=== PATIENT | male | born 1960 | race Caucasian/White ===

== ENCOUNTER 2019-12-13 11:11 | Outpatient (CLI) | payer BC, OTHER, SELFPAY ==
[2019-12-13 11:32] LABS: Basophils Percent Auto 0.6 % (0.2-1.2); Eosinophils Absolute Auto 0.2 K/mm3 (0-0.3); Eosinophils Percent Auto 2.9 % (0-4.4); Hematocrit 43.6 % (42.0-52.0); Hemoglobin 15.2 g/dL (14.0-18.0); Immature Granulocyte Absolute 0.02 K/mm3 (0.00-0.031); Immature Granulocyte Percent A 0.3 % (0-0.5); Lymphocytes Absolute Auto 1.89 K/mm3 (0.9-3.2); Lymphocytes Percent Auto 27.6 % (18.3-44.2); Mean Corpuscular HGB Conc 34.9 g/dl (32-36); Mean Corpuscular Hemoglobin 32.9 pg (26-34); Mean Corpuscular Volume 94.4 fl (80-100); Mean Platelet Volume 8.6 fl (7.4-10.4); Monocytes Absolute Auto 0.6 K/mm3 (0.1-0.6); Monocytes Percent Auto 8.8 % (2.6-8.5); Neutrophils Absolute Auto 4.1 K/mm3 (1.3-6.7); Neutrophils Percent Auto 59.8 % (45.5-73.1); Platelet Count Result 277 k/mm3 (150-375); Red Blood Count 4.62 M/mm3 (4.6-6.20); Red Cell Distribution Width 12.2 % (11.5-14.5); White Blood Count 6.9 K/mm3 (4.5-10.0)
[2019-12-13 12:21] LABS: Alanine Aminotransferase 16 U/L (4-50); Albumin Level 4.5 g/dL (3.5-5.1); Alkaline Phosphatase 76 U/L (38-126); Anion Gap 6 mmol/L (8-16); Aspartate Amino Transferase 24 U/L (17-59); Bilirubin,Total 0.7 mg/dL (0.2-1.3); Blood Urea Nitrogen 20 mg/dL (9-20); Calcium 10.5 mg/dL (8.4-10.2); Carbon Dioxide 27 mmol/L (22-30); Chloride 104 mmol/L (98-107); Cholesterol 191 mg/dL (0-200); Estimated Glomerular Filt Rate > 60; Glucose 97 mg/dL (75-110); HDL Direct 62 mg/dL; Potassium 4.5 mmol/L (3.4-5.0); Sodium 137 mmol/L (137-145); Triglycerides 90 mg/dL (<150)
[2019-12-13 12:32] LABS: LDL Cholesterol Direct 108 mg/dL
[2019-12-13 12:52] LABS: Prostate Specific Antigen 1.9 ng/mL (< OR = 4.0)
== END 2019-12-13 11:12 | disposition home or self-care (01) ==
PROVIDERS: PCP Family Medicine; Visit Provider Family Medicine
DX: E78.00 Pure hypercholesterolemia, unspecified (principal); Z12.5 Encounter for screening for malignant neoplasm of prostate
CPT/HCPCS: 36415; 80053; 80061; 84153; 84443; 85025; G0103

== ENCOUNTER 2021-02-03 02:11 | Day surgery (SDC) | payer BC, OTHER, SELFPAY ==
[2021-02-01 15:24] VITALS: BMI 24.4
--- NOTE | 2021-02-01 15:34 | PC.NURSE ---
Report to the Outpatient Waiting Room, entrance under the green pavilion located off [facility], at time 0630 on date 02/03/21. OR Time: 0830. - You and your visitor will be asked a series of questions to screen for COVID 19 for your protection. - A mask is required within the hospital. - Only one visitor is allowed at this time. Patient visitors will be guided where to wait when not with patient. Preoperative COVID Testing Requirements: No COVID Test needed if: (proof is required; if not received patient will have Rapid Test prior to entry) - Patient has received COVID Vaccine at least 14 days prior to procedure date or - Patient has positive COVID test result within last 90 days of surgery date. COVID Test needed if above criteria is not met If not COVID vaccinated a COVID test must be conducted within 72 hours of surgery and patient is asked to isolate self from time of testing until procedure. You will go to the [employer] [facility] for your COVID testing. The [employer] [facility] is located at the corner of [address] [facility]. You will only be called if COVID results are positive and your surgeon may reschedule your elective surgery date. Patients may have clear liquids ONLY DAY PRIOR TO SURGERY (02/02)<del>(water,</del> <del>carbonated</del> <del>beverages,</del> <del>clear</del> <del>teas,</del> <del>apple</del> <del>juice)</del> <del>until</del> <del>3</del> <del>hours</del> <del>prior</del> <del>to</del> <del>surgery</del> <del>with</del> <del>a</del> <del>maximum</del> <del>of</del> <del>20</del> <del>ounces</del>. - No food from midnight until time of surgery/NO LIQUIDS - Infants may have breast milk until 4 hours before surgery, infant formula 6 hours prior to surgery. - Children will be allowed to drink immediately following surgery. If applicable, please bring a bottle or sippy cup to assist with drinking. Juice, water, soda, and popsicles are readily available. For infants on formula, please bring formula the day of surgery. Pacifiers are allowed. Take the following medications with a SIP of water the morning of surgery: N/A Medications to discontinue per physician: N/A Date to take last dose: N/A FLEETS ENEMA NIGHT BEFORE SURGERY AND MORNING OF SURGERY DULCOLAX 5MG TAB NIGHT BEFORE SURGERY Please no make-up, nail marshallese, hairspray, perfume, deodorant, or body powder the day of surgery. No jewelry (including any body piercings) or valuables the day of surgery, leave them at home. Please take a shower or bath the night before, or the morning of, surgery with an antibacterial soap. Wear comfortable, loose fitting clothing. Children are encouraged to wear pajamas. - Jewelry must be removed prior to entering the operating room. Rings and piercings that are not removed may be cut off. - The hospital will not accept responsibility for valuables. - Please leave all valuables, including medications, at home the day of surgery. If you are going home after surgery, a licensed ups driver must drive you home. - NO public transportation without another adult. - We recommend that an adult stay with you for 24 hours following discharge. - We also recommend that you do not drive, make important decision, drink alcoholic beverages, or take any drugs that were not prescribed by your health care provider for at least 24 hours after your discharge time. For Pediatric surgeries, we recommend two adults accompany the child home (only one inside the building at this time). Follow any additional instructions given to you from your surgeon. Telephone instructions given to IRA KENT and asked if any additional questions and then verbalized understanding. Patient advised to call surgeon office or pre surgery nurse liaison [phone] if any additional questions.
--- NOTE | 2021-02-02 15:18 | PM.SD2 ---
Same Day Admit/Disch: HPI History of Present Illness Chief complaint: Rectal Bleeding, Stage 4 Hemorrhoids Narrative: Tony Mejia is a 60 year old male whom I saw in the office regarding clear anal discharge with episodes of rectal bleeding as well as complaints of protrusion of rectal tissue with swelling. He has tried preparation H without any success. Symptoms have gotten worse over the years. He has had this for approximately 3 years. He has to keep the anal area covered with a napkin or towel to protect his clothing from rectal drainage. He was seen in the office and found to have stage III and stage IV internal and external hemorrhoids. He is taken to surgery now for hemorrhoidectomy. [facility] Past Medical History Medical History Family history of colon cancer Surgical History Surgical History H/O shoulder surgery 2006 - Bone spur removal left shoulder Family History Family History Father Carcinoma of colon Mother Carcinoma of colon Social History Social History Smoking packs per day: 0.5 Smoking cigarettes per day: 10.0 Years smoked: 45 Smoking pack-years: 22.50 Smoking status: Current every day smoker Tobacco type: cigarettes Alcohol intake: current Drinks per week: 12 Substance use: never Substance use type: does not use Living arrangements: with family Spiritual care concerns: No Same Day Admit/Disch: Med Pre-admit Medications Home Medications Medication Instructions Recorded Confirmed Type hydrocodone-acetaminophen 1 - 2 tablet PO Q6H PRN #30 tablet 02/03/21 Rx ketorolac 10 mg PO Q6H 4 Days #16 tablet 02/03/21 Rx mineral oil 15 ml PO BID #473 ml 02/03/21 Rx psyllium husk (with sugar) 1 tbsp PO BID #60 packet 02/03/21 Rx [Metamucil (with sugar)] Exam Const: General: comfortable, no acute distress, alert and awake HENMT: Head: normocephalic and atraumatic Mouth: Yes Normal oral and palatal mucosa present Eyes: Conjunctivae: conjunctivae normal Pupils: Equal, round and reactive pupils present EOM: EOMs intact bilaterally Neck: Neck: normal visual inspection, no lymphadenopathy and nontender Resp: Effort & Inspection: normal respiratory effort Auscultation: clear to auscultation bilaterally Cardio: Rate: regular rate Rhythm: regular rhythm Heart sounds: no gallops, no murmurs and no rubs GI: Inspection: non-distended GI Palp: Yes Soft to palpation, No Tenderness to palpation present (GI), No Hepatomegaly present and No Splenomegaly present Rectal Exam: normal sphincter tone, External hemorrhoid(s) present ( associated with the internal hemorrhoids described), Internal hemorrhoid(s) present ( Stage IV left lateral hemorrhoids, stage III right anterior hemorrhoids), No mass and No tenderness Skin: Lesions: no lesions Rashes: no rashes Neuro: General: no focal motor deficits and CN's II-XI intact bilaterally Cranial nerves: Yes Equal, round and reactive pupils present, Yes Bilaterally intact EOM present, Yes facial symmetry and Yes Midline tongue present Speech: normal speech Motor exam (neuro): 5/5 motor strength present throughout and Motor abnormalities not present Extrem: General: no clubbing, cyanosis or edema and edema Psych: Affect: normal affect Thought process: Normal thought process present Insight: Good insight present (Psych) DS: Summary Time Spent with Patient Time attestation: Total time spent providing and/or coordinating discharge services: DS: Admitting Diagnosis Discharge Date 02/03/2021 Admitting Diagnosis stage III and 4 internal and external hemorrhoids with complications - bleeding and chronic drainage of mucus. I discussed this with the patient. He has failed conservative therapy. We plan to take him t
[2021-02-03] VITALS (7 sets, daily range): BP systolic 107–142; BP diastolic 73–96; PULSE 75–91; RESP 12–16; TEMP 36–36.6; O2SAT 95–100
--- NOTE | 2021-02-03 07:31 | ECG_ITS ---
Measurements Intervals [place] Rate: 75 P: 79 MI: 171 QRS: -25 QRSD: 101 T: 49 QT: 364 QTc: 407 Interpretive Statements SINUS RHYTHM POSSIBLE LEFT ATRIAL ENLARGEMENT INCOMPLETE RIGHT BUNDLE BRANCH BLOCK BASELINE ARTIFACT- II, III BORDERLINE ECG Electronically Signed On 02-03-2021 8:04:25 [employer]ALEGAL IN[employer] by Mp Contreras D.O.
[2021-02-03] MEDS: LACTATED RINGERS 1,000 ML 30 ML IV CONT ×2 (07:58→10:28)
[2021-02-03] MEDS: ACETAMINOPHEN 500 MG TABLET 1000 MG PO (07:59)
[2021-02-03] MEDS: KETOROLAC 15 MG/ML VIAL (*BKC) IV PUSH (08:00)
--- NOTE | 2021-02-03 08:22 | P.PNAN_ITS ---
Anes - Initial Pre Proc Eval Procedure: Operation Date: 02/03/21 08:30 Proposed Procedures p Hemorrhoidectomy - Carlyle Grady MD Date/Time: 02/03/21 08:22 Surgeon: Carlyle Grady MD Pre Op Diagnosis: Rectal Bleeding, Stage 4 Hemorrhoids Patient Data Age: 60 Gender: M Height: 1.8 m Weight: 76.6 kg Last Vital Signs Temp 36.6 C 02/03/21 06:30 Pulse 87 02/03/21 06:30 BP 136/81 02/03/21 06:30 Pulse Ox 98 02/03/21 06:30 Allergies Allergy/AdvReac Type Severity Reaction Status Date / Time No Known Allergies Allergy Verified 02/03/21 07:36 Home Medications Medication Instructions Recorded Confirmed Type No Home Medications 12/28/20 02/03/21 History Patient hx anesthesia problems: none Family hx anesthesia problems: none Results Review: All pre-operative results and documents have been reviewed as part of the pre-operative evaluation. [facility] Past Medical History Medical History Family history of colon cancer Surgical History Surgical History H/O shoulder surgery 2006 - Bone spur removal left shoulder Family History Family History Father Carcinoma of colon Mother Carcinoma of colon Social History Social History Smoking packs per day: 0.5 Smoking cigarettes per day: 10.0 Years smoked: 45 Smoking pack-years: 22.50 Smoking status: Current every day smoker Tobacco type: cigarettes Alcohol intake: current Drinks per week: 12 Substance use: never Substance use type: does not use Living arrangements: with family Spiritual care concerns: No Anes - Eval Final PreProcedure Day of Procedure 02/03/21 08:22 Patient weight: normal Heart: regular rate and rhythm Lungs: clear to auscultation Airway: Mallampati scale class II Neurological: alert and oriented Last oral intake: >/= 8 hours ASA classification: II Anesthetic plan: proceed Anesthesia type and monitoring: general GIVS and standard monitoring Results Review: All pre-operative results and documents have been reviewed as part of the pre-operative evaluation. Informed Consent: The patient's anesthetic plan and its attendant risks and benefits were discussed with the patient/family/POA. Questions were solicited and answers provided to the satisfaction of the patient/family/POA.
--- NOTE | 2021-02-03 09:30 | WPDHPUPDATE1 ---
History and Physical Update Update Date/Time: 02/03/21 09:30 History and Physical has been reviewed, including an updated exam of the patient. There are NO changes in the patient's condition. Risks, benefits, and alternatives have been discussed and questions answered. Patient agrees to proceed with procedure.
[2021-02-03] MEDS: ceFAZolin 2 GM/D5W 50 ML 2 GM/50 ML BAG IVPB (09:34)
[2021-02-03] MEDS: BUPIVACAINE HCL 0.5% PF 30 ML VIAL 20 ML INFILTRATE (10:07)
--- NOTE | 2021-02-03 10:36 | W.PM.PROC2 ---
Procedure Note - Detailed Date of Procedure 02/03/21 Pre-op Diagnosis Prolapsed, bleeding internal and external hemorrhoids Post-op Diagnosis same Procedure Performed Excision left lateral and right posterior complexes of internal and external hemorrhoids, rubber-band ligation of internal hemorrhoids Surgeon Carlyle Grady MD Court Registry Officer Yoli Dasilva [employer] Anesthesia general and local (0.5% Marcaine with Exparel) Indications Patient has had hemorrhoidal protrusion with some bleeding and chronic mucus drainage for quite some time. He has extensive internal and external hemorrhoids. He is taken to surgery now for hemorrhoidectomy. Findings Extensive and chronically prolapsed left lateral internal hemorrhoids with associated external hemorrhoids, right posterior complex internal hemorrhoids with external hemorrhoids, right anterior and additional right posterior internal hemorrhoids which were rubber-band ligated. Description of Procedure Patient was taken to surgery and induced into general anesthesia. He was then turned into prone position on the operating table. He was placed in prone shikha-knife position and the buttocks were taped apart. Prep and drape was carried out. Inspection with a Allan-Neeraj anoscope was performed. Findings were as above. We infiltrated local anesthesia using the mixture of 0.5% Marcaine with Exparel. 20 cc were infiltrated deep subdermal, 20 cc were infiltrated intra sphincteric. We turned our attention 1st to the left lateral internal and external hemorrhoids. The hemorrhoidal grasper was used and the internal and external hemorrhoids were excised. The wound was closed with running locking 4-0 chromic suture. I went to the patient's right side and then we turned our attention to the right posterior complex. Similarly this complex was excised and the wound was closed with running locking 4-0 chromic suture. There were internal hemorrhoids remaining at the right anterior complex and some he even at the midpoint or posterior aspect. Both of these were rubber-band ligated with good affect. No other anorectal pathology was noted. We placed Xeroform gauze fluffs and promise panties to cover the rectum. The patient was then returned to a supine position, awakened, extubated and then taken to recovery in good condition. Sponge and needle counts were correct x2. Estimated Blood Loss -5 Packing No Pathology yes (Left lateral complex internal and external hemorrhoids, right posterior complex internal and external hemorrhoid) Complications No immediate complications Condition stable Disposition PACU
== END 2021-02-03 12:15 | disposition home or self-care (01) ==
PROVIDERS: PCP Family Medicine; Visit Provider Surgery
PROC: (CPT 46260; principal; 2021-02-03 08:30)
DX: K64.3 Fourth degree hemorrhoids (principal); K64.2 Third degree hemorrhoids; K64.8 Other hemorrhoids; F17.210 Nicotine dependence, cigarettes, uncomplicated
CPT/HCPCS: 46260; 88304; 93005; A9270; C9290; J0330; J0690; J1100; J1885; J2405; J2704; J3010; J7120